=== PATIENT | female | born 1995 | race Caucasian/White ===

== ENCOUNTER 2024-09-29 10:08 | Emergency (ER) | payer OTHER, SELFPAY ==
--- NOTE | ~2024-09-29 | XR_ITS ---
CLINICAL HISTORY: pain 3 views thoracic spine Comparison: None Findings: Slight, 5 degree midthoracic curvature to the right. Otherwise normal alignment, mineralization and vertebral body height. Normal intervertebral disc height and vertebral endplates. No widening of the paraspinal stripe. No acute process evident in the included lungs. Impression: Minimal curvature to the right midthoracic spine. Otherwise negative. This document has been electronically signed by: João Knox MD on 09/29/2024 11:23:40
[2024-09-29 10:26] VITALS: BP 128/84; PULSE 89; RESP 16; TEMP 36.6; O2SAT 100; BMI 17.9
--- NOTE | 2024-09-29 10:29 | ED.GENADULT ---
HPI - General Adult General Chief complaint: Back Pain/Injury Stated complaint: back pain Time Seen by Provider: 09/29/24 13:22 History of Present Illness HPI narrative: Patient complains of upper back pain worse with movement that started yesterday and whenever she changes position yesterday it made it hard to sleep, Motrin helps a little and she comes today as the pain continues There is no chest pain no abdominal pain no shortness of breath no pain with deep breath, there is no radiation of the pain to arms or legs, there is no change to bowel or bladder there is no dysuria no frequency no incontinence, no fever no recent illness Related Data Previous Rx's ?Medication ?Instructions ?Recorded acetaminophen 500 mg tablet 1,000 mg (2 x 500 mg) PO QID PRN 09/29/24 pain #30 tabs cyclobenzaprine 5 mg tablet 5 mg PO TID muscle spasm #14 tabs 09/29/24 ibuprofen 600 mg tablet 600 mg PO Q6H PRN pain #20 tabs 09/29/24 Allergies Allergy/AdvReac Type Severity Reaction Status Date / Time No Known Allergies Allergy Verified 09/29/24 10:28 [facility] Past Medical History Source: nursing notes reviewed Social History Social History Do you have a plan to hurt others: No Plan Physical Exam ED Vital Signs: Vital Signs - 24 hr 09/29/24 10:26 Temperature 97.9 F Pulse Rate 89 Respiratory Rate 16 Blood Pressure 128/84 Pulse Oximetry 100 Oxygen Delivery Method Room Air BMI result Body Mass Index 17.9 General appearance comfortable cooperative no acute distress ambulates easily The head is normocephalic atraumatic Neck is supple Respiratory no distress The chest is clear to auscultation bilateral with full symmetric equal breath sounds no adventitious sounds, no pain with a deep breath Heart no murmur Abdomen soft nontender The back there is no CVA tenderness, there is no bony tenderness no midline tenderness, there is bilateral subscapular as well as paraspinal soft tissue tenderness, pain is reproduced with certain movements Extremities full range of motion x4 Neuro gait balance are normal , motor is 5/5 x4 and sensation is intact and symmetrical in distal extremities Course Course Course Narrative: RME performed by Kiana Daniels PA-C. Patient is a 29 year old assigned female at presenting to the emergency department with middle back pain. Detailed physical exam and review of systems are deferred to the product test engineer. Imaging ordered. Patient placed back in the waiting room pending room availability and results. Patient is exam showed reproducible with movement soft tissue paraspinal tenderness bilaterally and subscapular tenderness As she was examined in the cordero I did not do a skin exam but I asked her if she had looked at the skin and she said yes she did and this morning there was no rash No neurologic deficit no radiation of pain, no chest pain no difficulty breathing, thoracic spine x-ray was without any acute findings and patient is discharged diagnosis musculoskeletal back pain Discharge Plan Discharge Clinical Impression: Back pain Patient Disposition: Home, Self-Care Additional Instructions: The pain in her back is likely from muscle inflammation or soft tissue inflammation, there is no sign of any worrisome or dangerous condition Activity as tolerated is recommended, massage sometimes helps This usually gets better on its own in a very reasonable amount of time You can use Tylenol or Motrin for pain, the muscle relaxer cyclobenzaprine can cause drowsiness so no driving or working for 8 hours after taking it Return any time for chest pain, difficulty breathing, fever, any worse condition or any concerns Follow with primary doctor if not better in a few days and they often will recommend physical therapy Prescriptions: New acetaminophen 500 mg tablet 1,000 mg PO QID PRN (Reason: pain) Qty: 30 0RF ibuprofen 600 mg tablet 600 mg PO Q6H PRN (Reason: pain) Qty: 20 0RF cyclobenzaprine 5 mg tablet 5 mg PO TID Qty: 14 0RF Rx Instructions: May cause drowsiness, no driving for 8 hours after taking
--- OUTSIDE RECORDS SUMMARY | 2024-09-29 14:05 | XMS_ITS | Clinical Summary ---
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 Name Role Phone Unavailable Primary Care Provider Unavailabl e Surgical History Surgery Date Site/Laterality Comments EYE SURGERY PROCEDURE: [place] TRABECULOPLASTY BY LASER SURGERY; COMMENT: Lasik Medical History Medical History Date Comments Patient denies medical problems DX:Patient denies medical problems Family History Medical History Relation Name Comments No Known Problems Brother 1 No Known Problems Brother 2 No Known Problems Brother 3 No Known Problems Father Other: of natural causes Maternal Grandmot her Hypertension Mother Breast cancer Paternal Grandmother No Known Problems Sister 1 No Known Problems Sister 2 No Known Problems Sister 3 No Known Problems Sister 4 Colon cancer Neg Hx Ovarian cancer Neg Hx Pancreatic cancer Neg Hx Uterine cancer Neg Hx Relation Name Status Comments Brother 1 Alive Brother 2 Alive Brother 3 Alive Father Alive Maternal Grandfather Alive Maternal Grandmother Mother Alive Paternal Grandfather Alive Paternal Grandmother Sister 1 Alive Sister 2 Alive Sister 3 Alive Sister 4 Alive Social History Tobacco Use Types Packs/Day Years Used Date Smoking Tobacco: Former Smokeless Tobacco: Never Alcohol Use Standard Drinks/Week Comments Never 0 (1 standard drink = 0.6 oz pur e alcohol) Comments Unknown Sex and Gender Information Value Date Recorded Sex Assigned at Not on file Legal Sex Female 10:34 AM EST Gender Identity Not on file Sexual Orientation Not on file Obstetrics History Last Filed Vital Signs Vital Sign Reading Time Taken Comments Blood Pressure 112/72 04/21/2022 3:19 PM EDT Pulse 72 04/21/2022 3:19 PM EDT Temperature - - Respiratory Rate - - Oxygen Saturation - - Inhaled Oxygen Concentration - - Weight 59.2 kg (130 lb 9.6 oz) 04/21/2022 3:19 P M EDT Height 165.1 cm (5' 5 ) 12/06/2021 12:28 PM EDT Body Mass Index 21.73 12/06/2021 12:28 PM EDT Plan of Treatment Health Maintenance Due Date Last Done Comments Hepatitis B Vaccines (1 of 3 - 19+ 3-dose series) 2016 Depression Screening 07/11/2022 HIV Screening 07/11/2022 Hepatitis C Screening 07/11/2022 Social Influencers of Health Screening 07/11/2022 COVID-19 Vaccine ( - 2023-2 5 season) 2024 Influenza Vaccine (#1) 2024 Cervical Cancer Screening: P ap Smear 12/09/2024 12/09/2021 DTaP,Tdap,and Td Vaccines (2 - Td or Tdap) 01/05/2032 01/04/2022 HIB Vaccines Aged Out No longer eligi ble based on patient's age to complete this topic HPV Vaccines Aged Out No longer eligi ble based on patient's age to complete this topic Hepatitis A Vaccines Aged Out No long er eligible based on patient's age to complete this topic IPV Vaccines Aged Out No longer eligi ble based on patient's age to complete this topic MMR Vaccines Aged Out No longer eligi ble based on patient's age to complete this topic Meningococcal ACWY Vaccine Aged Out N o longer eligible based on patient's age to complete this topic Meningococcal B Vacine Aged Out No lo nger eligible based on patient's age to complete this topic Pneumococcal Vaccine: Pediat rics (0 to 5 Years) and At-Risk Patients (6 to 64 Years) Aged Out No longer eligi ble based on patient's age to complete this topic RSV Immunization Patients Un sofiya 20 months Aged Out No longer eligible b ased on patient's age to complete this topic Varicella Vaccines Aged Out No longer eligible based on patient's age to complete this topic Procedures Procedure Name Priority Date/Time Associated Diagnosis Comments PAP SMEAR Routine 12/09/2021 from Last 3 Months or Most Recently Relevant to Health Maintenance Results * Pap smear (12/09/2021) 12/09/2021 Narrative HISTORICAL TESTING LAB RESULTING AGENCY - 12/23/2021 3:15 PM EDT [id number] THINPREP PAP, IMAGED: NEGATIVE FOR SQUAMOUS INTRAEPITHELIAL LESION AND MALIGNANCY . NOTE: THE PAP TEST IS A SCREENING TEST WITH AN INHERENT FALSE NEGATIVE RATE. AUTOMATED PRESCREENING OF ALL LIQUID BASED SPECIMENS IS PERFORMED BY THE THINPREP IMAGING SYSTEM UNLESS OTHERWISE STATED. ROSALEE GOMEZ(ASCP) (CASE ELECTRONICALLY SIGNED 12 23 2021) ADEQUACY: SATISFACTORY ENDOCERVICAL/TRANSFORMATION ZONE COMPONENT PRESENT. SOURCE: THINPREP PAP HPV IF ASCUS, CERVICAL, IMAGED CLINICAL INFORMATION: HPV IF DIAGNOSIS OF ASCUS. Z12.4 us Carol Pederson MD LAB CYTOLOGY ORDERABLES Fin al Result HISTORICAL TESTING LAB RESULTING AGENCY from Last 3 Months or Most Recently Relevant to Health Maintenance
[2024-09-29 17:35] VITALS: BP 128/84; PULSE 89; RESP 16; TEMP 36.6; O2SAT 100
== END 2024-09-29 17:35 | disposition home or self-care (01) ==
PROVIDERS: Emergency Provider Emergency Medicine; PCP Family Medicine
DX: M54.6 Pain in thoracic spine (principal); Z79.899 Other long term (current) drug therapy
CPT/HCPCS: 72070; 99282; 99283

== ENCOUNTER → 2024-09-29 10:29 | Outpatient (BNV) | payer OTHER, SELFPAY | PROVIDERS: Visit Provider Radiology Diagnostic Radiology | DX: M54.6 Pain in thoracic spine (principal) | CPT/HCPCS: 72070 ==

== ENCOUNTER 2025-01-02 09:35 | Outpatient (AMB) | payer OTHER, SELFPAY ==
[2025-01-02 09:38] VITALS: BP 108/52; PULSE 79; O2SAT 99; BMI 17.6
--- NOTE | 2025-01-02 09:38 | MHC.PC.OV ---
Vital Signs 01/02/25 09:38 Height 5 ft 8 in Weight 116 lb BMI 17.6 BP 108/52 L Blood Pressure Location Lt brachial Position Sitting Pulse 79 Pulse Source Pulse Oximeter Pulse Oximetry (%) 99 Oxygen Delivery Method Room Air Intake Visit Reasons: establish care Allergies No Known Allergies Allergy (Verified 01/02/25 09:53) Medication List - Last Reconciled 01/02/25 by ALISA Perez acetaminophen 1,000 mg (2 x 500 mg) PO QID PRN cyclobenzaprine 5 mg PO TID ibuprofen 600 mg PO Q6H PRN Tobacco use date assessed: 01/02/25 Dental Screening Dental Screen Date: 01/02/25 Did you have a dental visit in the last 12 months?: Yes Did you have a dental problem in the last 6 months where you did not have access to dental care?: No Was dental information given to patient?: Patient has dentist HPI establish care HPI Details Previous PCP:n/a Last visit: Last PE: two years ago Specialist: no OBGYN:need a referral Past medical history: no Medications: no medications at this time Family HX: no hx Problem: The patient is a 29-year-old female presenting with dizziness. She reports that the dizziness began two months ago and occurs predominantly in the morning when she attempts to stand or change position. The dizziness is associated with a sensation of spinning and is sometimes accompanied by darkness in the eyes and ringing in the ears. She denies any recent physical examination and lacks a primary care physician at the moment. The patient has not been actively taking any medications and reports no significant past medical or family history. She seeks a generalized blood test due to concerns about possible iron deficiency. Her fluid intake is noted as insufficient, with only two to three bottles of water consumed daily. She denies any additional symptoms such as chest pain, shortness of breath, or abdominal pain. She has a history of LASIK surgery performed in [facility] four years ago without subsequent issues. Patient is also in need of an OBGYN. Dizziness: last two months in the morning mostly associated with darkness in the eyes Reports ringing in the ears. Reports that her eyes are fine because she check them often due to her lasik procedure 4 years ago Periorbital dermatitis. Reports recurrent dermatitis intermittently. She would like to be referred to a pest controller. [facility] Medical History (Updated 01/03/25 @ 08:39 by ALISA Perez) Perioral dermatitis Family History Mother No problems noted. Father No problems noted. Brother No problems noted. Brother No problems noted. Brother No problems noted. Sister No problems noted. Sister No problems noted. Sister No problems noted. Sister No problems noted. Daughter No problems noted. Daughter No problems noted. Social History Housing: Apartment Patient Tobacco Use Status: Never used Tobacco Tobacco use type: Cigarette e-Cigarette/Vaping Use: Never Used Second Hand Smoke Exposure: No service: No Current occupational status: unemployed Current occupational exposures/hazards: No Cognitive needs: No Hearing needs: No Vision needs: No Questionnaire PHQ-9 Over the last 2 weeks, how often have you been bothered by any of the following problems? 1. Little interest or pleasure in doing things: not at all 2. Feeling down, depressed, or hopeless: not at all 3. Trouble falling or staying asleep, or sleeping too much: not at all 4. Feeling tired or having little energy: not at all 5. Poor appetite or overeating: not at all 6. Feeling bad about yourself - or that you are a failure or have let yourself or your family down: not at all 7. Trouble concentrating on things, such as reading the newspaper or watching television: not at all 8. Moving or speaking so slowly that other people could have noticed. Or the opposite - being so fidgety or restless that you have been moving around a lot more than usual: not at all 9. Thoughts that you would be better off or of hurting yourself in some way: not at all Total score: 0 Depression Screening Interpretation: Negative Depression Screening Done: Yes 31872 - PHQ-9 Billing: Yes Source: Developed by Drs. Darryl Leyva, Lindsey Butler, Forest Muñoz and colleagues, with an educational foster from [employer]. Thrive Questionnaire Date Thrive assessed: 01/02/25 I am a: Patient What is your living situation today?: I have a steady place to live Within the past 12 months, did the food you bought not last and you didn't have the money to get more?: Never true Within the past 12 months, did you worry whether your food would run out before you got money to buy more?: Never true Do you have trouble paying for medicines?: No Do you have trouble getting transportation to medical appointments?: No Do you have trouble paying your heating and electricity bill?: No Do you have trouble taking care of your child, family member or friend?: No Do you have trouble with day-to-day activities such as bathing, preparing meals, shopping, managing finances, etc.?: No Are you currently unemployed and looking for a job?: No Are you interested in more education?: No Please select the resources that you would like help with: None Currently or been in a relationship where the following occur: No concerns reported THRIVE Score: 0 AUDIT C Alcohol Use Questionnaire (AUDIT-C) 1. How often do you have a drink containing alcohol?: Never 3. How often do you have six or more drinks on one occasion?: Never Total Score: 0 FRANCO-7 AMB Questionnaire FRANCO-7 Date FRANCO - 7 assessed: 01/02/25 Feeling nervous, anxious, or on edge: 0 = Not at all Not being able to stop or control worryin = Not at all Worrying too much about different things: 0 = Not at all Trouble relaxin = Not at all Being so restless that it is hard to sit still: 0 = Not at all Becoming easily annoyed or irritable: 0 = Not at all Feeling afraid as if something awful might happen: 0 = Not at all Total FRANCO-7 score (0-4 normal; 5-9 mild; 10-14 moderate; 15-21 severe): 0 Source: Developed by Drs. Darryl Leyva, Lindsey Butler, Forest Muñoz and colleagues, with an educational foster from [employer]. FRANCO-7 Assessment Billing FRANCO-7 Assessment Tool: FRANCO-7 Assessment 86248 Review of Systems Const Denies headache(s) Eyes Reports change in vision (During this insufficiency associated with the dizziness upon standing) and Denies loss of vision ENT Denies vertigo, Reports dizziness (Upon standing), Denies headache(s), Reports tinnitus (intermittently) and Denies sore throat Card Denies chest pain, Denies leg edema and Denies lightheadedness Resp Denies cough, Denies hemoptysis and Denies wheezing GI Denies abdominal pain, Denies melena, Denies constipation, Denies diarrhea and Denies vomiting Denies urinary frequency, Denies dysuria and Denies urinary urgency Musc Denies arthralgias, Denies joint swelling, Denies numbness and Denies tingling Skin/Breast Reports rash (reports periorbital dermatitis) Neuro Denies Abnormal speech present, Denies behavioral changes, Denies vertigo, Reports dizziness (Upon standing), Denies headache(s), Denies loss of vision, Denies memory loss, Denies numbness and Denies tingling Psych Denies anxiety, Denies behavioral changes, Denies depression, Denies memory loss and Denies panic attacks Jt/Lymph Denies easy bleeding and Denies easy bruising Aller/Immun Denies wheezing Physical exam (Primary Care) Vital Signs: Last Vital Signs Pulse 79 01/02/25 09:38 BP 108/52 L 01/02/25 09:38 Pulse Ox 99 01/02/25 09:38 Oxygen Delivery Method Room Air 01/02/25 09:38 BMI result Body Mass Index 17.6 Tobacco/Smoking Status: Tobacco use Status Tobacco use date assessed 01/02/25 01/02/25 09:45 Patient Tobacco Use Status Never used Tobacco 01/02/25 09:45 Tobacco use type Cigarette 01/02/25 09:45 e-Cigarette/Vaping Use Never Used 01/02/25 09:45 PHQ-9: PHQ-9 Score PHQ-9: Total score 0 01/03/25 08:28 Depression Screening Interpretation: Negative Thrive Assessment: Date of Thrive Assessment Date Thrive assessed 01/02/25 01/02/25 09:45 Currently or been in a relationship where the following occur: No concerns reported Const General: healthy appearing, no acute distress, alert and awake Nutritional Appearance: well nourished Orientation/consciousness: oriented to person, oriented to place and oriented to time HENMT Ears: Abnormal EAC present cerumen impaction bilateral General nose exam: Normal nasal mucous membranes and turbinates present Eyes Conjunctivae: conjunctivae normal Sclerae: sclerae normal Pupils: Equal, round and reactive pupils present Neck Neck: Yes no lymphadenopathy and Yes no JVD Thyroid: Thyroid normal Carotids: no bruits Resp Effort & Inspection: normal respiratory effort and not tachypneic Auscultation: no crackles, no rales, no rhonchi and no wheezes Cardio Rate: regular rate Rhythm: regular rhythm Heart sounds: no murmurs and normal S1 and S2 GI Palpation (GI): Soft to palpation, nontender, no hepatomegaly and no splenomegaly Auscultation: normal bowel sounds Skin General skin exam: no rashes or lesions noted and dry skin Neuro General: oriented to person, oriented to place and oriented to time Cranial nerves: Yes Equal, round and reactive pupils present Speech: No Abnormal speech present Gait exam (Neuro): Normal gait present Motor exam (neuro): no tremor noted Extrem Right upper extremity: full ROM Left upper extremity: full ROM Right lower extremity: full ROM; no edema Left lower extremity: full ROM; no edema Psych Mental Status: mental status grossly normal Speech and movement: Normal speech and movement present Affect: normal affect Attitude: cooperative Thought process: Normal thought process present Coding Level of Care Code New Pt Level 3 (19956) Diagnoses Perioral dermatitis L71.0 Impacted cerumen of both ears H61.23 Dizziness on standing R42 Vision changes H53.9 Tinnitus of both ears H93.13 Additional Codes FRNACO-7 Assessment Billing - FRANCO-7 Assessment Tool: FRANCO-7 Assessment 20236 ([id number]) PHQ-9 - 17727 - PHQ-9 Billing: Yes ([id number]) Time Spent (min) 35 Assessment & Plan Assessment & Plan (1) Perioral dermatitis: Code(s): L71.0 - Perioral dermatitis Category: Medical Plan: Recurrent issue. The patient would like to be referred to Dermatology. (2) Impacted cerumen of both ears: Code(s): H61.23 - Impacted cerumen, bilateral Category: Medical Plan: Debrox ear drops recommended. The patient would like to hold off on returning for ear cleaning. She will try and use the Debrox ear drops single handedly We will reassess on next visit (3) Dizziness on standing: Code(s): R42 - Dizziness and giddiness Category: Medical Plan: Patient reports intermittent dizziness upon standing associated with dark vision. Patient is only drinking 2-3 bottles of water daily. Suspect dehydration, explained to the patient that she needs to drink around 6-8 bottles of water daily. Labs ordered to further evaluate (4) Vision changes: Code(s): H53.9 - Unspecified visual disturbance Category: Medical Plan: Patient reports that her vision gets dark up and dizziness after standing. Discussed possibly ophthalmology consultation. Per patient, she has multiple high screenings due to history of Lasik surgery and her vision is okay. Encouraged the patient to increase fluids due to the assess patient of poor p.o. intake causing her dizziness upon standing. Since her vision change this is associated with her being dizzy possibly, this might resolve the sensation of dark vision as well. (5) Tinnitus of both ears: Code(s): H93.13 - Tinnitus, bilateral Category: Medical Plan: Bilateral ear impaction, which could be the reason for the patient dizziness as well. Patient we will use Debrox ear drops to soften cerumen. She wants to hold off on being scheduled for ear cleaning. We will reassess on her next visit Orders: Orders Comprehensive [place]. Panel Fast 01/02/25 Z00.00 - Encounter for general adult medical examination without abnormal findings Lipid Panel 01/02/25. - Encounter for general adult medical examination without abnormal findings TSH reflex Free T4 01/02/25 Z00.00 - Encounter for general adult medical examination without abnormal findings Vitamin D 25-OH Total 01/02/25 Z00.00 - Encounter for general adult medical examination without abnormal findings Complete Blood Count Auto Diff 01/02/25 Z00. - Encounter for general adult medical examination without abnormal findings UA CC w/rflx Micro + Cult 01/02/25 Z00.00 - Encounter for general adult medical examination without abnormal findings Referrals [facility] Referral Z01.419 - Encounter for gynecological examination (general) (routine) without abnormal findings Dermatology Referral L71.0 - Perioral dermatitis
--- OUTSIDE RECORDS SUMMARY | 2025-01-02 09:54 | XMS_ITS | Clinical Summary ---
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 Name Role Phone Unavailable Primary Care Provider Unavailabl e Surgical History Surgery Date Site/Laterality Comments EYE SURGERY PROCEDURE: [place] TRABECULOPLASTY BY LASER SURGERY; COMMENT: Lasik Medical [...] Influencers of Health Screening 07/11/2022 COVID-19 Vaccine (2023-2 5 season) 2024 Cervical Cancer Screening: P ap Smear 12/09/2024 12/09/2021 Influenza Vaccine (Season Ended) 2025 DTaP,Tdap,and Td Vaccines (2 - Td or [...] age to complete this topic Meningococcal B Vaccine Aged Out No l onger eligible based on patient's age to complete [...] RESULTING AGENCY - 12/23/2021 3:15 PM EDT [id number] THINPREP PAP, IMAGED: NEGATIVE FOR SQUAMOUS INTRAEPITHELIAL [...]
== END 2025-01-02 10:17 | disposition home or self-care (01) ==
LOC: HO.HMCH 09:35
DX: L71.0 Perioral dermatitis (principal); H61.23 Impacted cerumen, bilateral; R42 Dizziness and giddiness; H53.9 Unspecified visual disturbance; H93.13 Tinnitus, bilateral

== ENCOUNTER 2025-01-02 09:35 | Outpatient (REF) | payer OTHER, SELFPAY ==
[2025-01-02 10:33] LABS: MANUAL DIFF FLAG NO
[2025-01-02 11:00] LABS: Basophils Percent Auto 0.5 % (0-2); Eosinophils Absolute Auto 0.1 X10*3/uL (0.0-0.4); Eosinophils Percent Auto 1.6 % (0-4); Hematocrit 33.8 % (37.0-47.0); Hemoglobin 11.7 g/dl (12.0-16.0); Imm Gran Abs Auto 0.01 X10*3/uL (0.00-0.03); Imm Gran Pct Auto 0.2 % (0.0-0.4); Lymphocytes Absolute Auto 1.6 X10*3/uL (1.2-4.9); Lymphocytes Percent Auto 36.7 % (20-40); Mean Corpuscular HGB Conc 34.6 g/dl (31.0-35.0); Mean Corpuscular Hemoglobin 29.5 pg (27.0-33.0); Mean Corpuscular Volume 85.4 fL (80.0-98.0); Mean Platelet Volume 9.8 fL (9.4-12.3); Monocytes Absolute Auto 0.4 X10*3/uL (0.1-1.2); Monocytes Percent Auto 8.6 % (2-11); Neutrophils Absolute Auto 2.3 x10*3/uL (2.0-8.3); Neutrophils Percent Auto 52.4 % (45-73); Platelet Count 227 X10*3/uL (160-400); Red Blood Count 3.96 X10*6/uL (4.20-5.50); Red Cell Distribution Width 12.5 % (11.0-16.0); White Blood Count 4.3 X10*3/uL (4.8-10.8)
[2025-01-02 11:31] LABS: Appearance Urine Clear; Color Urine Yellow; Glucose Urine UA Negative (Negative); Leukocyte Esterase Urine Negative (Negative); Nitrite Urine Negative (Negative); Urine Blood Negative (Negative); Urine Ketones Negative (Negative); Urine Protein Negative (Neg-Trace)
[2025-01-02 11:35] LABS: Alanine Aminotransferase 22 U/L (0-31); Albumin Level 4.6 g/dL (3.5-5.0); Alkaline Phosphatase 43 U/L (39-117); Anion Gap 11 (12-20); Aspartate Amino Transferase 23 U/L (5-31); Bilirubin Total 0.5 mg/dL (0.0-1.0); Blood Urea Nitrogen 13 mg/dL (9-16); Calcium 9.6 mg/dL (8.4-10.2); Carbon Dioxide 25 mmol/L (22-29); Chloride 108 mmol/L (96-108); Cholesterol 153 mg/dL (<200); Estimated Glomerular Filt Rate > 60; Glucose Fasting 87 mg/dL (60-99); HDL Cholesterol 52 mg/dL (>40); LDL Cholesterol Calculated 90 mg/dL (<100); Potassium 4.2 mmol/L (3.3-5.1); Sodium 140 mmol/L (135-145); Total Protein 7.5 g/dL (6.5-8.0); Triglycerides 57 mg/dL (<150)
[2025-01-02 11:56] LABS: TSH reflex Free T4 0.99 uIU/mL (0.32-4.0); Vitamin D 25-OH Total 40.6 ng/mL (>30)
== END 2025-01-02 09:36 | disposition home or self-care (01) ==
LOC: HO.LAB 09:35
DX: Z00.00 Encounter for general adult medical examination without abnormal findings (principal); R42 Dizziness and giddiness; L71.0 Perioral dermatitis; H61.23 Impacted cerumen, bilateral; H53.9 Unspecified visual disturbance; H93.13 Tinnitus, bilateral
CPT/HCPCS: 36415; 80053; 80061; 81003; 82306; 84443; 85025; 96127; 99202